=== PATIENT | female | born 1985 | race African-American/Black ===

== ENCOUNTER 2017-04-11 08:30 | Emergency (ER) | payer MEDICAID ==
[~2017-04-11] VITALS: Ht 149.9 cm; Wt 68.0 kg
[2017-04-11] MEDS ORDERED: SODIUM CHLORIDE 0.9% 1,000 ML IV ONE (09:15)
[2017-04-11] MEDS ORDERED: ONDANSETRON HCL 4MG/2ML VIAL IV ONE (09:15)
[2017-04-11 09:18] LABS: HEMATOCRIT. 37.1 % (36.0-48.0); HEMOGLOBIN. 12.7 g/dL (12.0-16.0); MEAN CORPUSCULAR HEMOGLOBIN 31.7 pg (28.0-32.0); PLATELET 296 x1000/uL (130-400); RED BLOOD CELL COUNT 3.99 mill/uL (4.2-5.4); RED CELL DISTRIBUTION WIDTH 14.3 % (11.6-14.6)
[2017-04-11 09:28] LABS: CARBON DIOXIDE 18 mEq/L (21-32); CHLORIDE 111 mEq/L (98-107)
[2017-04-11 09:57] LABS: PLATELET ESTIMATE NORMAL
[2017-04-11 10:26] LABS: CLARITY URINE CLEAR (CLEAR); COLOR URINE YELLOW (YELLOW); GLUCOSE URINE NEGATIVE (NEGATIVE); KETONES URINE 1+ (NEGATIVE); LEUKOCYTE ESTERASE URINE NEGATIVE (NEGATIVE); NITRITE URINE NEGATIVE (NEGATIVE); OCCULT BLOOD URINE 2+ (NEGATIVE); PH URINE 6.5 (4.5-8.0); PROTEIN URINE TRACE (NEGATIVE); SPECIFIC GRAVITY URINE 1.026 (1.005-1.030)
[2017-04-11] MEDS ORDERED: METOCLOPRAMIDE HCL 10MG/2ML VIAL IV ONE ×2 (10:30→13:00)
[2017-04-11] MEDS ORDERED: ONDANSETRON HCL 4MG/2ML VIAL ONE (10:54)
[2017-04-11] MEDS ORDERED: IOHEXOL-300 100 ML BOTTLE ONE (12:57)
[2017-04-11] MEDS ORDERED: SODIUM CHLORIDE 0.9% 10ML VIAL ONE (12:57)
[2017-04-11] MEDS ORDERED: LORAZEPAM 2MG/ML CPJ IV ONE (13:00)
[2017-04-11] MEDS ORDERED: MORPHINE SULFATE 2 MG/ML CPJ (NOT FOR IM USE) IV ONE (13:45)
[2017-04-11 15:13] VITALS: BP 147/92
[2017-04-11 16:03] LABS: *AMPHETAMINES SCREEN URINE NEGATIVE (NEGATIVE); *BARBITURATES SCREEN URINE NEGATIVE (NEGATIVE); *BENZODIAZEPINES SCREEN URINE NEGATIVE (NEGATIVE); *COCAINE SCREEN URINE NEGATIVE (NEGATIVE); METHADONE URINE SCREEN NEGATIVE (NEGATIVE); OPIATES URINE SCREEN NEGATIVE (NEGATIVE); PHENCYCLIDINE URINE SCREEN NEGATIVE (NEGATIVE)
[2017-04-11 16:04] LABS: CANNABINOID URINE SCREEN PRESUMTIVE POSITIVE (NEGATIVE)
== END 2017-04-11 16:28 | disposition home or self-care (01) ==
LOC: ER 08:31
DX: R10.9 Unspecified abdominal pain (principal); R11.2 Nausea with vomiting, unspecified; A59.9 Trichomoniasis, unspecified; F12.10 Cannabis abuse, uncomplicated
CPT/HCPCS: 36415; 74177; 80048; 80076; 80305; 81001; 81025; 83690; 85007; 85027; 96361; 96374; 96375; 99285; A4216; J2060; J2405; J2765; J7030; Q9967; Z7610

== ENCOUNTER 2017-05-16 19:46 | Emergency (ER) | payer MEDICAID ==
[~2017-05-16] VITALS: Ht 149.9 cm; Wt 66.0 kg
[2017-05-17] MEDS ORDERED: FAMOTIDINE 20MG/2ML VIAL IV STA (02:57)
[2017-05-17 03:22] LABS: HEMATOCRIT. 38.5 % (36.0-48.0); HEMOGLOBIN. 13.4 g/dL (12.0-16.0); MEAN CORPUSCULAR HEMOGLOBIN 33.1 pg (28.0-32.0); MEAN CORPUSCULAR VOLUME 94.7 fL (81.0-99.0); MEAN PLATELET VOLUME 7.9 fl (7.4-10.4); PLATELET 266 x1000/uL (130-400); RED BLOOD CELL COUNT 4.06 mill/uL (4.2-5.4); RED CELL DISTRIBUTION WIDTH 14.2 % (11.6-14.6)
[2017-05-17 03:27] LABS: PROTHROMBIN TIME 10.6 sec
[2017-05-17] MEDS ORDERED: SODIUM CHLORIDE 0.9% 1,000 ML IV NR (03:30)
[2017-05-17] MEDS ORDERED: LORAZEPAM 2MG/ML CPJ IV NR (03:30)
[2017-05-17 03:34] LABS: CARBON DIOXIDE 24 mEq/L (21-32); CHLORIDE 103 mEq/L (98-107); ETHANOL BLOOD < 10 mg/dL
[2017-05-17 04:01] LABS: CLARITY URINE CLEAR (CLEAR); COLOR URINE YELLOW (YELLOW); GLUCOSE URINE NEGATIVE (NEGATIVE); KETONES URINE 3+ (NEGATIVE); LEUKOCYTE ESTERASE URINE NEGATIVE (NEGATIVE); NITRITE URINE NEGATIVE (NEGATIVE); OCCULT BLOOD URINE 2+ (NEGATIVE); PROTEIN URINE 1+ (NEGATIVE); SPECIFIC GRAVITY URINE 1.032 (1.005-1.030); UROBILINOGEN URINE 0.2 E.U./dL (0.2-1.0)
[2017-05-17 04:16] LABS: PLATELET ESTIMATE NORMAL
[2017-05-17 04:49] LABS: *AMPHETAMINES SCREEN URINE NEGATIVE (NEGATIVE); *BARBITURATES SCREEN URINE NEGATIVE (NEGATIVE); *BENZODIAZEPINES SCREEN URINE NEGATIVE (NEGATIVE); *COCAINE SCREEN URINE NEGATIVE (NEGATIVE); CANNABINOID URINE SCREEN PRESUMTIVE POSITIVE (NEGATIVE); METHADONE URINE SCREEN NEGATIVE (NEGATIVE); OPIATES URINE SCREEN NEGATIVE (NEGATIVE); PHENCYCLIDINE URINE SCREEN NEGATIVE (NEGATIVE)
[2017-05-17] MEDS ORDERED: ONDANSETRON 4MG ODT PO ONE (07:00)
[2017-05-17] MEDS ORDERED: ONDANSETRON HCL 4MG/2ML VIAL IV ONE (07:30)
[2017-05-17 07:40] VITALS: BP 120/78
[2017-05-17] MEDS ORDERED: CEPHALEXIN 500MG CAPSULE PO ONE (07:45)
[2017-05-17] MEDS ORDERED: POTASSIUM CHLORIDE 20MEQ/PACKET PO NR (07:45)
== END 2017-05-17 08:54 | disposition home or self-care (01) ==
LOC: ER 19:46
DX: E87.6 Hypokalemia (principal); E86.0 Dehydration; F12.10 Cannabis abuse, uncomplicated; F17.210 Nicotine dependence, cigarettes, uncomplicated; Z88.8 Allergy status to other drugs, medicaments and biological substances
CPT/HCPCS: 36415; 80053; 80305; 81001; 81025; 83690; 85025; 85610; 96361; 96374; 96375; 99285; G0482; J2060; J2405; J3490; J7030; Q0162; Z7610

== ENCOUNTER 2017-09-11 01:41 | Emergency (ER) | payer MEDICAID ==
[~2017-09-11] VITALS: Ht 152.4 cm; Wt 73.0 kg
[2017-09-11] MEDS ORDERED: SODIUM CHLORIDE 0.9% 1,000 ML IV ONE (02:31)
[2017-09-11] MEDS ORDERED: ONDANSETRON HCL 4MG/2ML VIAL IV STA (02:31)
[2017-09-11] MEDS ORDERED: FAMOTIDINE 20MG/2ML VIAL IV STA (02:31)
[2017-09-11] MEDS ORDERED: MORPHINE SULFATE 10 MG/ML CPJ IV ONE (02:45)
[2017-09-11 02:47] LABS: CLARITY URINE CLEAR (CLEAR); COLOR URINE YELLOW (YELLOW); GLUCOSE URINE NEGATIVE (NEGATIVE); KETONES URINE 1+ (NEGATIVE); LEUKOCYTE ESTERASE URINE TRACE (NEGATIVE); NITRITE URINE NEGATIVE (NEGATIVE); OCCULT BLOOD URINE TRACE (NEGATIVE); PROTEIN URINE NEGATIVE (NEGATIVE); SPECIFIC GRAVITY URINE 1.027 (1.005-1.030); UROBILINOGEN URINE 0.2 E.U./dL (0.2-1.0)
[2017-09-11 03:08] LABS: *AMPHETAMINES SCREEN URINE NEGATIVE (NEGATIVE); *BARBITURATES SCREEN URINE NEGATIVE (NEGATIVE); *BENZODIAZEPINES SCREEN URINE NEGATIVE (NEGATIVE); *COCAINE SCREEN URINE NEGATIVE (NEGATIVE); METHADONE URINE SCREEN NEGATIVE (NEGATIVE); OPIATES URINE SCREEN NEGATIVE (NEGATIVE); PHENCYCLIDINE URINE SCREEN NEGATIVE (NEGATIVE)
[2017-09-11 03:17] LABS: BASOPHILS % 0.4 % (0.0-2.0); EOSINOPHILS % 0.4 % (0.0-5.0); HEMATOCRIT. 39.1 % (36.0-48.0); HEMOGLOBIN. 13.3 g/dL (12.0-16.0); LYMPHOCYTES % 15.3 % (20.0-50.0); MEAN CORPUSCULAR HEMOGLOBIN 32.9 pg (28.0-32.0); MEAN CORPUSCULAR VOLUME 96.6 fL (81.0-99.0); MEAN PLATELET VOLUME 7.9 fl (7.4-10.4); MONOCYTES % 5.4 % (2.0-8.0); NEUTROPHILS % 78.5 % (40.0-76.0); PLATELET 252 x1000/uL (130-400); RED BLOOD CELL COUNT 4.04 mill/uL (4.2-5.4); RED CELL DISTRIBUTION WIDTH 13.7 % (11.6-14.6)
[2017-09-11 03:20] LABS: CANNABINOID URINE SCREEN PRESUMTIVE POSITIVE (NEGATIVE)
[2017-09-11 03:25] LABS: HCG SCREEN NEGATIVE
[2017-09-11 03:29] LABS: PROTHROMBIN TIME 10.3 sec (9.4-11.6)
[2017-09-11 03:43] LABS: CARBON DIOXIDE 24 mEq/L (21-32); CHLORIDE 105 mEq/L (98-107); ETHANOL BLOOD < 10 mg/dL; TROPONIN I < 0.02 ng/mL (0.00-0.04)
[2017-09-11 07:28] VITALS: BP 148/98
== END 2017-09-11 07:29 | disposition home or self-care (01) ==
LOC: ER 01:41
DX: K29.00 Acute gastritis without bleeding (principal); N39.0 Urinary tract infection, site not specified; F17.210 Nicotine dependence, cigarettes, uncomplicated; F12.10 Cannabis abuse, uncomplicated; E66.9 Obesity, unspecified; K76.0 Fatty (change of) liver, not elsewhere classified; K44.9 Diaphragmatic hernia without obstruction or gangrene; I10 Essential (primary) hypertension; Z71.6 Tobacco abuse counseling; Z88.8 Allergy status to other drugs, medicaments and biological substances; Z68.31 Body mass index [BMI] 31.0-31.9, adult
CPT/HCPCS: 36415; 71010; 74176; 80053; 80305; 81001; 83605; 83690; 83880; 84484; 84703; 85025; 85610; 93005; 96361; 96374; 96375; 99285; G0482; J2270; J2405; J3490; J7030; Z7610

== ENCOUNTER 2017-10-24 07:12 | Emergency (ER) | payer MEDICAID ==
[~2017-10-24] VITALS: Ht 152.4 cm; Wt 71.0 kg
[2017-10-24] MEDS ORDERED: ONDANSETRON HCL 4MG/2ML VIAL ONE (09:05)
[2017-10-24 10:07] LABS: HEMATOCRIT. 38.7 % (36.0-48.0); HEMOGLOBIN. 12.9 g/dL (12.0-16.0); MEAN CORPUSCULAR HEMOGLOBIN 32.1 pg (28.0-32.0); MEAN CORPUSCULAR VOLUME 96.4 fL (81.0-99.0); MEAN PLATELET VOLUME 8.1 fl (7.4-10.4); PLATELET 246 x1000/uL (130-400); RED BLOOD CELL COUNT 4.01 mill/uL (4.2-5.4); RED CELL DISTRIBUTION WIDTH 13.9 % (11.6-14.6)
[2017-10-24 10:14] LABS: PROTHROMBIN TIME 10.7 sec (9.4-11.6)
[2017-10-24 10:20] LABS: CARBON DIOXIDE 23 mEq/L (21-32); CHLORIDE 108 mEq/L (98-107)
[2017-10-24 10:31] LABS: PLATELET ESTIMATE NORMAL
[2017-10-24] MEDS ORDERED: ONDANSETRON HCL 4MG/2ML VIAL IV STA (10:48)
[2017-10-24] MEDS ORDERED: SODIUM CHLORIDE 0.9% 1,000 ML IV ONE (10:48)
[2017-10-24 10:51] LABS: CLARITY URINE CLEAR (CLEAR); COLOR URINE YELLOW (YELLOW); KETONES URINE 4+ (NEGATIVE); LEUKOCYTE ESTERASE URINE NEGATIVE (NEGATIVE); NITRITE URINE NEGATIVE (NEGATIVE); OCCULT BLOOD URINE NEGATIVE (NEGATIVE); PH URINE >=9.0 (4.5-8.0); PROTEIN URINE TRACE (NEGATIVE); SPECIFIC GRAVITY URINE 1.019 (1.005-1.030); UROBILINOGEN URINE 0.2 E.U./dL (0.2-1.0)
[2017-10-24 11:15] LABS: *AMPHETAMINES SCREEN URINE NEGATIVE (NEGATIVE); *BARBITURATES SCREEN URINE NEGATIVE (NEGATIVE); *BENZODIAZEPINES SCREEN URINE NEGATIVE (NEGATIVE); *COCAINE SCREEN URINE NEGATIVE (NEGATIVE); METHADONE URINE SCREEN NEGATIVE (NEGATIVE); OPIATES URINE SCREEN NEGATIVE (NEGATIVE); PHENCYCLIDINE URINE SCREEN NEGATIVE (NEGATIVE)
[2017-10-24 11:37] LABS: CANNABINOID URINE SCREEN PRESUMTIVE POSITIVE (NEGATIVE)
[2017-10-24] MEDS ORDERED: ONDANSETRON HCL 4MG/2ML VIAL IV ONE (12:00)
[2017-10-24] MEDS ORDERED: KETOROLAC 30MG/ML VIAL IV ONE (13:15)
[2017-10-24 13:41] VITALS: BP 184/78
[2017-10-24] MEDS ORDERED: ONDANSETRON 4MG ODT PO ONE (14:15)
== END 2017-10-24 14:33 | disposition home or self-care (01) ==
LOC: ER 07:40
DX: R11.10 Vomiting, unspecified (principal); F12.10 Cannabis abuse, uncomplicated; R19.7 Diarrhea, unspecified; R10.84 Generalized abdominal pain; R74.8 Abnormal levels of other serum enzymes; R03.0 Elevated blood-pressure reading, without diagnosis of hypertension; Z71.51 Drug abuse counseling and surveillance of drug abuser
CPT/HCPCS: 36415; 76705; 80053; 80305; 81001; 83690; 85025; 85610; 96361; 96374; 96375; 96376; 99285; J1885; J2405; J7030; Q0162; Z7610

== ENCOUNTER 2019-04-28 12:54 | Emergency (ER) | payer SELFPAY ==
[~2019-04-28] VITALS: Ht 152.4 cm; Wt 69.0 kg
[2019-04-28] MEDS ORDERED: CAPSAICIN 0.075% CREAM 60GM TOP STA (13:07)
[2019-04-28] MEDS ORDERED: LACTATED RINGERS 1,000 ML IV STA (13:07)
[2019-04-28] MEDS ORDERED: HALOPERIDOL LACTATE 5MG/ML VIAL IM ONE (13:15)
[2019-04-28 13:57] LABS: BASOPHILS % 0.7 % (0.0-2.0); HEMATOCRIT. 42.5 % (36.0-48.0); HEMOGLOBIN. 14.3 g/dL (12.0-16.0); MEAN CORPUSCULAR HEMOGLOBIN 32.4 pg (28.0-32.0); MEAN CORPUSCULAR VOLUME 96.4 fL (81.0-99.0); MEAN PLATELET VOLUME 8.6 fl (7.4-10.4); MONOCYTES % 9.2 % (2.0-8.0); NEUTROPHILS % 75.1 % (40.0-76.0); PLATELET 316 x1000/uL (130-400); RED CELL DISTRIBUTION WIDTH 14.3 % (11.6-14.6)
[2019-04-28 13:59] LABS: CLARITY URINE CLOUDY (CLEAR); COLOR URINE DARK YELLOW (YELLOW); KETONES URINE 4+ (NEGATIVE); LEUKOCYTE ESTERASE URINE 2+ (NEGATIVE); NITRITE URINE NEGATIVE (NEGATIVE); OCCULT BLOOD URINE NEGATIVE (NEGATIVE); PH URINE 6.5 (4.5-8.0); PROTEIN URINE 1+ (NEGATIVE); SPECIFIC GRAVITY URINE 1.034 (1.005-1.030)
[2019-04-28 14:05] LABS: CHLORIDE 107 mEq/L (98-107)
[2019-04-28 14:06] LABS: PROTHROMBIN TIME 10.3 sec (9.6-11.0)
[2019-04-28 14:09] LABS: HCG SCREEN NEGATIVE
[2019-04-28] MEDS ORDERED: ONDANSETRON HCL 4MG/2ML INJ IV ONE (14:15)
[2019-04-28] MEDS ORDERED: SODIUM CHLORIDE 0.9% 1,000 ML IV ONE (16:15)
[2019-04-28 18:00] VITALS: BP 116/72
== END 2019-04-28 18:00 | disposition home or self-care (01) ==
LOC: ER 12:54
DX: G43.A0 Cyclical vomiting, in migraine, not intractable (principal); F12.10 Cannabis abuse, uncomplicated; R10.84 Generalized abdominal pain; R00.0 Tachycardia, unspecified; F17.200 Nicotine dependence, unspecified, uncomplicated
CPT/HCPCS: 36415; 80053; 81003; 81025; 83605; 84703; 85025; 85610; 87086; 96361; 96372; 96374; 99283; J1630; J2405; J7030; J7120; Z7610